=== PATIENT | male | born 1980 | race Caucasian/White ===

== ENCOUNTER 2023-05-05 14:51 | Emergency (ER) | payer OTHER ==
[~2023-05-05] VITALS: Ht 180.3 cm; Wt 113.4 kg
[2023-05-05 15:02] VITALS: BP_SYST 147
[2023-05-05] MEDS ORDERED: DIPHTH,PERTUSS(ACELL),TET VAC 0.5 ML VIAL (Tdap) I.M. ONE (15:15)
[2023-05-05] MEDS ORDERED: BACITRACIN 1 GM OINT TP ONE (15:15)
[2023-05-05] MEDS ORDERED: LIDOCAINE 1% 10 MG/ML, 20 ML MDV INJ ONE (15:15)
[2023-05-05 15:56] VITALS: BP_SYST 138
== END 2023-05-05 15:55 | disposition home or self-care (01) ==
LOC: SED 14:51
DX: S61.211A Laceration without foreign body of left index finger without damage to nail, initial encounter (principal); Z79.899 Other long term (current) drug therapy; W31.2XXA Contact with powered woodworking and forming machines, initial encounter; Y93.89 Activity, other specified; Y92.89 Other specified places as the place of occurrence of the external cause; Y99.8 Other external cause status
CPT/HCPCS: 99283; 90715; 90471; 12002; J2001